=== PATIENT | male | born 1970 | race Caucasian/White ===

== ENCOUNTER 2019-04-23 15:29 | Emergency (ER) | payer BC ==
--- NOTE | 2019-04-23 16:36 | EDM.PDOC ---
ED HPI GENERAL MEDICAL PROBLEM - General Chief Complaint: Abdominal Pain Stated Complaint: R SIDE ABDOMINAL PAIN Time Seen by Provider: 04/23/19 16:36 - History of Present Illness INITIAL COMMENTS - FREE TEXT/NARRATIVE: 48-year-old male presents emergency room with abdominal pain. Patient was seen at the [facility] emergency room earlier today with abdominal pain. Gallbladder ultrasound was unrevealing and labs that were the most part unrevealing yet chemistries CBC and a UA done as well as a lipase. The patient has significant right-sided abdominal pain seems to be localized to the right upper quadrant. The patient has nausea and some vomiting eating does not seem to make this pain much worse. He has no burning or frequency with urination he doesn't times have flank pain that extends into the lower abdomen. Right Abdomen Pain Score (Numeric/FACES): 8 - Related Data Allergies Allergy/AdvReac Type Severity Reaction Status Date / Time No Known Allergies Allergy Verified 04/23/19 10:31 CDT Home Meds: Home Meds Acetaminophen/HYDROcodone [Clayhole 325-5 MG] 1 - 2 tab PO Q6H PRN #18 tablet 04/23 [Rx] Levofloxacin [Levaquin] 750 mg PO Q24H #6 tablet 04/23/19 [Rx] metroNIDAZOLE [Flagyl] 500 mg PO Q8H #21 tab 04/23/19 [Rx] Past Medical History - Past Health History Medical/Surgical History: Denies Medical/Surgical History Social & Family History - Family History Family Medical History: Noncontributory - Tobacco Use Smoking Status *Q: Never Smoker - Caffeine Use Caffeine Use: Reports: None - Recreational Drug Use Recreational Drug Use: No ED ROS GENERAL - Review of Systems Review Of Systems: See Below Constitutional: Reports: No Symptoms HEENT: Reports: No Symptoms Respiratory: Reports: No Symptoms Cardiovascular: Reports: No Symptoms Endocrine: Reports: No Symptoms GI/Abdominal: Reports: Abdominal Pain, Nausea, Vomiting. Denies: No Symptoms, Constipation, Diarrhea : Reports: No Symptoms Musculoskeletal: Reports: No Symptoms Skin: Reports: No Symptoms Neurological: Reports: No Symptoms ED EXAM, GI/ABD - Physical Exam Exam: See Below Exam Limited By: No Limitations General Appearance: Alert, No Apparent Distress Neck: Normal Inspection, Supple, Non-Tender, Full Range of Motion. No: Lymphadenopathy (L), Lymphadenopathy (R) Respiratory/Chest: No Respiratory Distress, Lungs Clear, Normal Breath Sounds Cardiovascular: Regular Rate, Rhythm, No Edema, No Murmur GI/Abdominal Exam: Normal Bowel Sounds, Soft, No Distention, No Mass, Rebound ( Patient has marked rebound tenderness with pain radiating to the right side of the abdomen from with checking both the right and left lower quadrants.) Back Exam: Normal Inspection. No: CVA Tenderness (L), CVA Tenderness (R) Neurological: Alert, Oriented, Normal Cognition Course - Vital Signs Last Recorded V/S: Last Vital Signs Temp 36.5 C 04/23/19 15:42 Pulse 79 04/23/19 15:42 Resp 16 04/23/19 15:42 BP 127/64 04/23/19 15:42 Pulse Ox 98 04/23/19 15:42 - Orders/Labs/Meds Meds: Medications Discontinued Medications Generic Name Dose Route Start Last Admin Trade Name Romanq PRN Reason Stop Dose Admin Hydrocodone Bitart/Acetaminophen 1 tab 04/23/19 18:21 04/23/19 18:40 [place] 325-5 Mg PO 04/23/19 18:22 1 tab ONETIME ONE Administration Fentanyl 50 mcg 04/23/19 18:21 04/23/19 18:40 Sublimaze IVPUSH 04/23/19 18:22 50 mcg ONETIME ONE Administration Lactated Ringer's 1,000 mls @ 999 mls/hr 04/23/19 16:50 04/23/19 17:00 Ringers, Lactated IV 04/23/19 17:50 999 mls/hr .BOLUS ONE Administration Iopamidol 100 ml 04/23/19 17:15 04/23/19 17:29 Isovue-300 (61%) IVPUSH 04/23/19 17:16 100 ml ONETIME ONE Administration Levofloxacin 750 mg 04/23/19 18:23 04/23/19 18:40 Levaquin PO 04/23/19 18:24 750 mg ONETIME ONE Administration Metronidazole 500 mg 04/23/19 18:24 04/23/19 18:40 Flagyl PO 04/23/19 18:25 500 mg ONETIME ONE Administration - Re-Assessments/Exams Free Text/Narrative Re-Assessment/Exam: 04/23/19 17:07 Will not replete. His labs will check a CT IV contrast only no oral as I cannot exclude a kidney stone at this point and start IV fluids. 04/23/19 18:55 CT was done which shows diverticulitis mild at the hepatic flexure. The patient is a good candidate for outpatient therapy will start him on Levaquin 750 mg daily for 7 days Flagyl 500 mg daily for 7 days. Departure - Departure Time of Disposition: 18:56 Disposition: Home, Self-Care 01 Clinical Impression: Diverticulitis - Discharge Information Prescriptions: Acetaminophen/HYDROcodone [[place]hole 325-5 MG] 1 - 2 tab PO Q6H PRN #18 tablet PRN Reason: Abdominal Pain Levofloxacin [Levaquin] 750 mg PO Q24H #6 tablet metroNIDAZOLE [Flagyl] 500 mg PO Q8H #21 tab Referrals: PCP,Not In Area [Primary Care Provider] - Evan Schaefer MD [Physician] - Forms: ED Department Discharge Additional Instructions: Return to the emergency room with any questions problems or worsening symptoms. Take the antibiotics as directed. Use the pain medication as needed however allow 12 hours after using the pain medication before driving or returning to work follow-up with Dr. Schaefer towards the end of this week.
[2019-04-23] MEDS ORDERED: Lactated Ringers 1,000 ML IV ONE (16:50)
[2019-04-23] MEDS ORDERED: Iopamidol 612 MG/ML 100 ML Bottle IVPUSH ONE (17:15)
--- NOTE | 2019-04-23 18:04 | CT ---
CT abdomen and pelvis Technique: Multiple axial sections were obtained from above the dome of the diaphragm inferiorly through the pubic symphysis. Intravenous contrast was utilized. No oral contrast has been given. Comparison: No prior abdominal imaging. Findings: Visualized lung bases show nothing acute. Liver shows multiple small low-density lesions within both right and left lobes. These findings measure 1 cm or less in size. Larger findings have Hounsfield unit measurements of cysts and others that are not able to be measured are most likely due to additional smaller cysts. Spleen appears within normal limits. Adrenal glands show no nodule. Pancreas is within normal limits. Kidneys show contrast enhancement with no hydronephrosis or mass. Aorta shows no aneurysm. No retroperitoneal adenopathy is seen. Fat-containing umbilical hernia is noted. Appendix is seen which is normal in size. No pelvic mass or adenopathy is identified. Mild inflammatory change is seen off the transverse colon near the hepatic flexure. There is a questionable diverticuli in this region and findings are most likely due to mild diverticulitis. No additional inflammatory change is seen. No free fluid is seen. Delayed images shows contrast within the distal ureters and within the bladder. Bone window settings were reviewed which appear within normal limits for the patient's age. Impression: 1. Inflammatory change within the transverse colon near the hepatic flexure. As mentioned above, this is most likely due to mild diverticulitis. 2. Other findings believed to be incidental as noted above. Diagnostic code #3
[2019-04-23] MEDS ORDERED: Acetaminophen/HYDROcodone 325-5 MG Tab PO ONE (18:21)
[2019-04-23] MEDS ORDERED: fentaNYL 100 MCG/2 ML SDV IVPUSH ONE (18:21)
[2019-04-23] MEDS ORDERED: Levofloxacin 750 MG Tab PO ONE (18:23)
[2019-04-23] MEDS ORDERED: metroNIDAZOLE 500 MG Tab PO ONE (18:24)
== END 2019-04-23 19:24 | disposition home or self-care (01) ==
LOC: JD.ED 15:29
DX: K57.32 Diverticulitis of large intestine without perforation or abscess without bleeding (principal)
CPT/HCPCS: 74177; 96361; 96374; 99284; A9270; J3010; J7120; Q9967